=== PATIENT | male | born 1950 | race Caucasian/White ===

== ENCOUNTER 2023-04-09 17:53 | Emergency (ER) | payer BC, MEDICARE, OTHER ==
[2023-04-09] MEDS ORDERED: Bacitracin Oint 1 GM U/D Packet TOP ONE (18:43)
== END 2023-04-09 19:13 | disposition home or self-care (01) ==
LOC: FB.ED 17:53
DX: S68.625A Partial traumatic transphalangeal amputation of left ring finger, initial encounter (principal); I25.10 Atherosclerotic heart disease of native coronary artery without angina pectoris; E78.00 Pure hypercholesterolemia, unspecified; E11.9 Type 2 diabetes mellitus without complications; M10.9 Gout, unspecified; Z88.5 Allergy status to narcotic agent; Z79.82 Long term (current) use of aspirin; Z79.899 Other long term (current) drug therapy; W26.0XXA Contact with knife, initial encounter
CPT/HCPCS: 99283